=== PATIENT | female | born 1990 | race African-American/Black ===

== ENCOUNTER 2019-08-04 16:49 | Emergency (ER) | payer OTHER ==
[~2019-08-04] VITALS: Ht 160 cm; Wt 45.4 kg
--- NOTE | 2019-08-04 17:45 | NUR ---
PATIENT WAS SEEN BY .... URINE SENT TO LAB
[2019-08-04 17:49] LABS: *BILIRUBIN,URIN NEGATIVE (NEGATIVE); *BLOOD, URINE NEGATIVE (NEGATIVE); *CLARITY,URINE CLEAR (CLEAR); *COLOR,URINE YELLOW (YELLOW); *KETONES,URINE NEGATIVE (NEGATIVE); LEUKOCYTE ESTERASE ,URINE NEGATIVE (NEGATIVE); NITRITE, URINE NEGATIVE (NEGATIVE); PH,URINE 6.5 (5.0-8.0); UGLUCOSE NEGATIVE (NEGATIVE)
[2019-08-04 17:51] LABS: *URINE HCG, QUAL NEGATIVE (NEGATIVE)
[2019-08-04 17:56] LABS: MUCUS,URINE FEW /LPF (0-FEW); SQUAMOUS EPITHELIAL CELL,UR FEW /HPF (NONE SEEN); WBC,URINE 0-3 /HPF (0-3)
[2019-08-04 17:57] LABS: BACTERIA,URINE FEW /HPF (NONE SEEN)
--- NOTE | 2019-08-04 18:10 | NUR ---
DC AND FOLLOW UP INSTRUCTIONS GIVEN AND EXPLAINED TO PATIENT WHO STATES SHE UNDERSTANDS ALL INSTRUCTIONS.
== END 2019-08-04 18:11 | disposition home or self-care (01) ==
LOC: ER 16:49
DX: B37.3 Candidiasis of vulva and vagina (principal)
CPT/HCPCS: 84703; A4663